=== PATIENT | female | born 1965 | race Hispanic/Latino ===

== ENCOUNTER → 2018-11-01 | Outpatient (CLI) | payer OTHER ==
[~2018-11-01] MED LIST: B/P MED; NAPROXEN250 MG PO; [UNRECOGNIZED DRUG - OTHER]
--- NOTE | 2018-11-01 12:26 | Diagnostic Imaging Report ---
TECHNIQUE: Magnetic resonance imaging of the LEFT SHOULDER was performed WITHOUT injected contrast. 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 FINDINGS: MUSCLES AND TENDONS: Rotator Cuff: Tendons: Supraspinatus and Infraspinatus: Mild thickening and increased intrasubstance signal of the posterior conjoined and infraspinatus fibers. Teres Minor: Intact Subscapularis: Intact Muscles: No focal muscle atrophy. Biceps Tendon: The long head of the biceps tendon is intact and within the intertubercular groove. GLENOHUMERAL JOINT: Glenoid Labrum: Mild complex tearing and attenuation of the posterosuperior labrum. Paucity of anterosuperior labral tissue and cordlike middle glenohumeral ligament, compatible with a [place] complex, an anatomic variant. Articular Cartilage: Low-grade erosion. Joint Fluid: No effusion. ACROMIOCLAVICULAR JOINT: Severe hypertrophic degenerative changes of the acromioclavicular joint. No effusion. BONE: The acromion is unremarkable. Mild fragmentation of the distal clavicle with moderate subchondral bone marrow edema. No focal or infiltrative bone marrow replacing abnormality. SOFT TISSUES: Otherwise, unremarkable. IMPRESSION: 1. Severe hypertrophic osteoarthrosis of the acromioclavicular joint. 2. 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 3. Minimal degenerative changes of the glenohumeral joint, including minimal degenerative tearing of the posterosuperior labrum. Signed by: Dr. Gerardo Hoover D.O., M.M.M. on 11/01/2018 12:23 PM
== END ==
LOC: MRI 10:37
PROVIDERS: ATTEND Specialist
DX: M75.42 Impingement syndrome of left shoulder (principal)

== ENCOUNTER → 2018-11-15 | Day surgery (SDC) | payer OTHER ==
[~2018-11-15] MED LIST changes: +LIDOCAINE HCL 2% LOCAL INJ 5 ML SDV VIAL INJ ONE; +MIDAZOLAM HCL 2 MG/2 ML VIAL ONE; +PROPOFOL IV EMULSION 10 MG/ML 50 ML VIAL ONE
--- OUTSIDE RECORDS SUMMARY | 2018-11-15 07:10 | XMS REPORT ---
Author Author [facility] Address Unknown Phone Unavailable Care Team Providers Care Superintendent Drivers Name Role Phone YOLANDE LUCIO Unavailable Unavailable Problems This patient has no known problems. Allergies, Adverse Reactions, Alerts This patient has no known allergies or adverse reactions. Medications This patient has no known medications. Results Test Description Test Time Test Comments Text Results Atomic Results Result Comments MRI SHOULDER LEFT WO 2018-11-01 11:57:00 [place] [address] Patient Name: OXANA STANFORD MR #: [id number] : 1965 Age/Sex: 53/F Req #: [id number] [facility] Physician: Ordered by: YOLANDE LUCIO MD Report #: [id number] Location: MRI Room/Bed: Procedure: [id number] MRI/MRI SHOULDER LEFT WO Exam Date: 11/01/18 Exam Time: 1124 REPORT STATUS: Signed TECHNIQUE: Magnetic resonance imaging of the LEFT DANIEL ULDER was performed WITHOUT injected contrast. 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 FINDINGS: MUSCLES AND TENDONS: Rotator Cuff: Tendons: Supraspinatus and Infraspinatus: Mild thickening and increased intrasubstance signal of the posterior conjoined and infraspinatus fibers. Teres Minor: Intact Subscapularis: Intact Muscles: No focal muscle atrophy. Biceps Tendon: The long head of the biceps tendon is intact and within the intertubercular groove. GLENOHUMERAL JOINT: Glenoid Labrum: Mild complex tearing and attenuation of the posterosuperior labrum. Paucity of anterosuperior labral tissue and cordlike middle glenohumeral ligament, compatible with a [place] complex, an anatomic variant. Articular Cartilage: Low-grade erosion. Joint Fluid: No effusion. ACROMIOCLAVICULAR JOINT: Severe hypertrophic degenerative changes of the acromioclavicular joint. No effusion. BONE: The acromion is unremarkable. Mild fragmentation of the distal clavicle with moderate subchondral bone marrow edema. No focal or infiltrative bone marrow replacin g abnormality. SOFT TISSUES: Otherwise, unremarkable. IMPRESSION: 1. Severe hypertrophic osteoarthrosis of the acromioclavicular joint. 2. 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 3. Minimal degenerative changes of the glenohumeral joint, including minimal degenerative tearing of the posterosuperior labrum. Signed by: Areli JacksonOZenobia, M.M.M. on 11/01/2018 12:23 PM Dictated By: DREW SIMMONS DO 1223 Transcribed By: RAMESH on 11/01/18 1223 COPY TO: YOLANDE LUCIO MD
[2018-11-15 10:50] VITALS: BP 110/70
== END | disposition home or self-care (01) ==
LOC: OR 07:08
PROVIDERS: ATTEND Internal Medicine Gastroenterology
DX: Z12.11 Encounter for screening for malignant neoplasm of colon (principal); K29.50 Unspecified chronic gastritis without bleeding; K21.0 Gastro-esophageal reflux disease with esophagitis; K44.9 Diaphragmatic hernia without obstruction or gangrene; B96.81 Helicobacter pylori [H. pylori] as the cause of diseases classified elsewhere; K64.8 Other hemorrhoids; Z71.3 Dietary counseling and surveillance; E66.9 Obesity, unspecified; G47.33 Obstructive sleep apnea (adult) (pediatric); I10 Essential (primary) hypertension; M06.9 Rheumatoid arthritis, unspecified; F32.9 Major depressive disorder, single episode, unspecified; F17.200 Nicotine dependence, unspecified, uncomplicated; Z01.810 Encounter for preprocedural cardiovascular examination; Z68.31 Body mass index [BMI] 31.0-31.9, adult; Z80.0 Family history of malignant neoplasm of digestive organs
CPT/HCPCS: 43239; 45378; 88305; 88312; 93005; J2001; J2250

== ENCOUNTER 2019-01-08 07:00 | Outpatient (RCR) | payer OTHER ==
[~2019-01-08 07:00] MED LIST changes: -LIDOCAINE HCL 2% LOCAL INJ 5 ML SDV VIAL INJ ONE; -MIDAZOLAM HCL 2 MG/2 ML VIAL ONE; -PROPOFOL IV EMULSION 10 MG/ML 50 ML VIAL ONE
== END 2019-01-29 ==
LOC: PT 07:00
PROVIDERS: ATTEND Specialist
DX: M72.2 Plantar fascial fibromatosis (principal); M76.62 Achilles tendinitis, left leg

== ENCOUNTER 2019-01-08 07:00 | Outpatient (RCR) | payer OTHER | END 2019-01-29 | LOC: PT 07:00 | PROVIDERS: ATTEND Specialist | DX: M72.2 Plantar fascial fibromatosis (principal) ==

== ENCOUNTER → 2024-04-05 | Outpatient (REF) | payer MEDICARE | LOC: US 09:44 | PROVIDERS: ATTEND Urology | DX: R31.9 Hematuria, unspecified (principal) | CPT/HCPCS: 76770 ==